=== PATIENT | male | born 1965 | race Caucasian/White ===

== ENCOUNTER 2019-02-14 08:27 | Outpatient (CLI) | payer OTHER ==
[2019-02-14 09:14] LABS: BASOPHILS % (AUTO) 0.8 %; EOSINOPHILS # (AUTO) 0.1 10^3/uL (0.0-0.7); HGB - HEMOGLOBIN 14.8 g/dL (14.0-18.0); LYMPHOCYTES # (AUTO) 0.8 10^3/uL (1.5-3.5); LYMPHOCYTES % (AUTO) 15.5 %; MEAN CORPUSCULAR HEMOGLOBIN 30.1 pg (27.0-31.0); MEAN CORPUSCULAR HGB CONC 33.6 g/dL (32.0-36.0); MEAN CORPUSCULAR VOLUME 89.5 fL (80.0-94.0); MEAN PLATELET VOLUME 8.3 fL (7.4-11.4); MONOCYTES # (AUTO) 0.6 10^3/uL (0.0-1.0); MONOCYTES % (AUTO) 11.8 %; NEUTROPHILS # (AUTO) 3.6 10^3/uL (1.5-6.6); NEUTROPHILS % (AUTO) 69.9 %; PLT - PLATELET COUNT 215 10^3/uL (130-450); RED BLOOD COUNT 4.92 10^6/uL (4.70-6.10); RED CELL DISTRIBUTION WIDTH 13.1 % (12.0-15.0); WHITE BLOOD COUNT 5.2 x10^3/uL (4.8-10.8)
[2019-02-14 09:32] LABS: ALBUMIN 4.6 g/dL (3.2-5.5); ALBUMIN/GLOBULIN RATIO 1.4 (1.0-2.2); ALKALINE PHOSPHATASE 62 IU/L (42-121); ALT ALANINE AMINOTRANSFERASE 21 IU/L (10-60); AST ASPARTATE AMINOTRANSFERASE 25 IU/L (10-42); BUN - BLOOD UREA NITROGEN 21 mg/dL (6-20); CALCIUM 9.3 mg/dL (8.5-10.3); CARBON DIOXIDE - CO2 29 mmol/L (21-32); CHLORIDE 103 mmol/L (101-111); CHOL/HDL RATIO 2.8 (<5.0); CHOLESTEROL 175 mg/dL; CREATININE 1.1 mg/dL (0.6-1.2); GFR - MDRD 69 (>89); GLUCOSE 105 mg/dL (70-100); HDL CHOLESTEROL 63 mg/dL; SODIUM 138 mmol/L (135-145); TOTAL PROTEIN 7.8 g/dL (6.7-8.2)
[2019-02-14 10:07] LABS: LDL CHOLESTEROL,DIRECT 107 mg/dL; LDLD/HDL RATIO 1.7 (<3.6)
== END 2019-02-14 08:28 | disposition home or self-care (01) ==
LOC: LAB 08:27
PROVIDERS: ATTEND Nurse Practitioner Family
DX: Z00.00 Encounter for general adult medical examination without abnormal findings (principal); E55.9 Vitamin D deficiency, unspecified; E78.5 Hyperlipidemia, unspecified
CPT/HCPCS: 36415; 80053; 80061; 82306; 82728; 83721; 85025

== ENCOUNTER 2021-06-22 04:59 | Outpatient (CLI) | payer OTHER | END 2021-06-22 05:00 | disposition critical access hospital (66) | LOC: EMS 04:59 | DX: R29.898 Other symptoms and signs involving the musculoskeletal system (principal) | CPT/HCPCS: A0425; A0429 ==

== ENCOUNTER 2021-06-22 05:05 | Observation (INO) | payer OTHER ==
--- NOTE | 2021-06-22 05:22 | ED Physician Documentation ---
PD HPI FOCAL NEURO - Stated complaint Stated Complaint: L SIDE NUMBNESS - Chief complaint Chief Complaint: Neuro - History obtained from History obtained from: Patient, EMS - History of Present Illness Timing - onset: Enter time (04:20), Today Timing - details: Abrupt onset Severity of deficit: Mild Weakness: Arm, Leg, Left Associated symptoms: No: Headache, Nausea / vomiting, Head injury, Neck pain, Fever Contributing factors: negative: Anticoagulated, Vascular dz, Atrial fibrillation, Prosthetic heart valve Baseline status: positive: A&OX3, ambulatory, indep Similar symptoms before: Has not had sx before Recently seen: Not recently seen - Additional information Additional information: BIBA. patient says he woke up this morning, ate breakfast, and then drove to work. He arrived at work at 4:20 AM this morning and upon getting out of his vehicle, he noted symptoms involving his left arm and leg that he can best describe as feeling like the LUE and LLE were not doing/going what he wanted them to. He denies weakness per se and denies numbness/paresthesias. He says he feels as though his left arm and leg were "light" as if they were drifting from targeted movements and actions. He had gotten into his vehicle approximately 10 minutes earlier and did not have this sensation when he was at home nor when he got into his vehicle. He denies h/o similar symptoms. EMS notes FSBS 134. Patient has not felt symptoms while at rest, but upon transferring himself from EMS stretcher to ED stretcher he says that his symptoms have significantly imp roved. Review of Systems Constitutional: reports: Reviewed and negative Eyes: reports: Reviewed and negative Ears: reports: Reviewed and negative Nose: reports: Reviewed and negative Throat: reports: Reviewed and negative Cardiac: reports: Reviewed and negative Respiratory: reports: Reviewed and negative GI: reports: Reviewed and negative Skin: reports: Reviewed and negative Musculoskeletal: reports: Reviewed and negative Neurologic: denies: Focal weakness, Numbness, Altered mental status, Headache, Head injury PD PAST MEDICAL HISTORY - Past Medical History Past Medical History: Yes Other Past Medical History: HHT - Past Surgical History Past Surgical History: No - Present Medications Home Medications: Ambulatory Orders Medication Instructions Recorded Confirmed No Known Home Medications 06/22/21 06/22/21 - Allergies Allergies/Adverse Reactions: Allergies Allergy/AdvReac Type Severity Reaction Status Date / Time No Known Drug Allergies Allergy Verified 06/22/21 05:08 - Living Situation Living Situation: reports: Alone Living Arrangement: reports: At home PD ED PE NORMAL - Vitals Vital signs reviewed: Yes - General General: Alert and oriented X 3, No acute distress, Well developed/nourished - HEENT HEENT: PERRL, EOMI, Moist mucous membranes - Neck Neck: Supple, no meningeal sign - Cardiac Cardiac: RRR, No murmur, No gallop, No rub - Respiratory Respiratory: No respiratory distress, Clear bilaterally - Abdomen Abdomen: Soft, Non tender - Derm Derm: Normal color, Warm and dry - Extremities Extremities: No edema - Neuro Neuro: Alert and oriented X 3, office coordinator 2-12 intact, No motor deficit, No sensory deficit, Normal speech Eye Opening: Spontaneous Motor: Obeys Commands Verbal: Oriented GCS Score: 15 - Psych Psych: Normal mood, Normal affect NIHSS - Time Time: 05:10 - Level of Consciousness Level of consciousness: (0) Alert, Keenly responsive LOC Questions: (0) Answers both Q's correct LOC Commands: (0) Performs both correctly - Gaze Best Gaze: (0) Normal - Visual Visual: (0) No loss - Facial Palsy Facial Palsy: (0) Normal, symmetrical movement - Motor Arms (both separate) Motor Arm (right): (0) No drift Motor Arm (left): (0) No drift - Motor Legs (both separate) Motor Leg (right): (0) No drift Motor Leg (left): (0) No drift - Limb Ataxia Limb Ataxia: (0) Absent - Sensory Sensory: (0) Normal - Best Language Best Language: (0) No aphasia - Dysarthria Dysarthria: (0) Normal - Extinction and Inattention (formally neg Extinction and inattention: (0) No abnormality - Total Score/Results Total Score/Result: 0 Results - Vitals Vitals: Vital Signs - 24 hr 06/22/21 06/22/21 06/22/21 05:09 05:13 06:07 Temperature 36.2 C L 36.2 C L Heart Rate 92 92 84 Respiratory 16 16 17 Rate Blood Pressure 155/90 H 155/90 H 148/91 H O2 Saturation 98 98 96 06/22/21 06/22/21 06:37 07:26 Temperature Heart Rate 81 77 Respiratory 14 16 Rate Blood Pressure 138/87 H 134/91 H O2 Saturation 99 Oxygen O2 Source Room air - Labs Labs: Laboratory Tests 06/22/21 06/22/21 06/22/21 05:16 05:16 06:09 WBC 9.7 RBC 4.92 Hgb 15.3 Hct 44.5 MCV 90.4 MCH 31.1 H MCHC 34.4 RDW 12.2 Plt Count 257 MPV 10.3 Neut # (Auto) 7.3 H Lymph # (Auto) 1.2 L [place] # (Auto) 1.0 Eos # (Auto) 0.1 Baso # (Auto) 0.1 Absolute Nucleated RBC 0.00 Nucleated RBC % 0.0 PT 11.7 INR 1.1 APTT 31.2 Sodium 137 Potassium 3.7 Chloride 103 Carbon Dioxide 23 Anion Gap 11.0 BUN 16 Creatinine 0.9 Estimated GFR (MDRD) 87 L Glucose 148 H Calcium 9.0 Total Bilirubin 1.2 H AST 24 ALT 23 Alkaline Phosphatase 79 Total Protein 7.9 Albumin 4.5 Globulin 3.4 Albumin/Globulin Ratio 1.3 Lipase 32 - Rads (name of study) CTA head Radiology: Prelim report reviewed, See rad report CTA neck Radiology: Prelim report reviewed, See rad report PD MEDICAL DECISION MAKING - ED course Complexity details: reviewed results, re-evaluated patient, considered differential, d/w patient ED course: patient presents after sudden onset of LUE and LLE symptoms that he says felt like a lack of coordination between actions he intended and what the left arm and leg were doing. He says symptoms have improved en route. His NIHSS score is zero on my evaluation. Telestroke consult obtained, during the course of which the neurologist had patient stand and take a few steps, noting no difficulty in doing so and patient acknowledged that his symptoms had completely resolved. His initial tests, including CTA head/neck, are unremarkable. TIA is still considered and neurologist recommends admission for further testing to include telemetry, echo, and MRI. I discussed with the consult the lack of MRI capability at [facility] until Friday; she says that patient can have MRI in outpatient setting in the upcoming week provided he is observed on telemetry and undergoes echo, with discharge after 24 hours of telemetry provided his symptoms do not recur and no concerning findings on telemetry and echo. ED TRANSITION MANAGER contacted [facility] for consideration of transfer to a facility that has MRI available; they advise that bed availability is scarce and that we can disposition patient at this point. [facility], [facility], and [facility] in [place] are then contacted and there are no beds available at any of these facilities. I then contacted [facility] hospitalist (Dr. Brenner) and patient is accepted to [facility] with plan to undergo 24 hours telemetry and echo as outlined by neurologist as a reasonable option. Dr. Hinds (neurology telestroke consult) also recommends 81mg ASA QD, plavix 75 mg QD (for 3 weeks) ,80mg lipitor QD (6 weeks). - TPA CVA checklist Inclusion crititeria: positive: CT no bleed, Onset know < 4.5 hr. negative: Sig neuro deficit (resolved ) Departure - Departure Disposition: ED Place in Observation Clinical Impression: TIA (transient ischemic attack) Condition: Good Discharge Date/Time: 06/22/21 08:34
[2021-06-22] MEDS ORDERED: IOPAMIDOL-300 50 ML VIAL ONE (05:30)
[2021-06-22 05:35] LABS: BASOPHILS # (AUTO) 0.1 10^3/uL (0.0-0.1); BASOPHILS % (AUTO) 0.5 %; EOSINOPHILS # (AUTO) 0.1 10^3/uL (0.0-0.7); EOSINOPHILS % (AUTO) 1.2 %; HCT - HEMATOCRIT 44.5 % (42.0-52.0); HGB - HEMOGLOBIN 15.3 g/dL (14.0-18.0); LYMPHOCYTES # (AUTO) 1.2 10^3/uL (1.5-3.5); LYMPHOCYTES % (AUTO) 12.1 %; MEAN CORPUSCULAR HEMOGLOBIN 31.1 pg (27.0-31.0); MEAN CORPUSCULAR HGB CONC 34.4 g/dL (32.0-36.0); MEAN CORPUSCULAR VOLUME 90.4 fL (80.0-94.0); MEAN PLATELET VOLUME 10.3 fL (7.4-11.4); MONOCYTES % (AUTO) 10.5 %; NEUTROPHILS # (AUTO) 7.3 10^3/uL (1.5-6.6); NEUTROPHILS % (AUTO) 75.2 %; PLT - PLATELET COUNT 257 10^3/uL (130-450); RED BLOOD COUNT 4.92 10^6/uL (4.70-6.10); RED CELL DISTRIBUTION WIDTH 12.2 % (12.0-15.0); WHITE BLOOD COUNT 9.7 x10^3/uL (4.8-10.8)
[2021-06-22 05:44] LABS: ALBUMIN 4.5 g/dL (3.2-5.5); ALBUMIN/GLOBULIN RATIO 1.3 (1.0-2.2); BILIRUBIN,TOTAL 1.2 mg/dL (0.2-1.0); CREATININE 0.9 mg/dL (0.6-1.2); POTASSIUM 3.7 mmol/L (3.5-5.0); TOTAL PROTEIN 7.9 g/dL (6.7-8.2)
[2021-06-22] MEDS ORDERED: IOPAMIDOL-300 50 ML VIAL IVP ONE (06:08)
[2021-06-22 06:19] LABS: INR 1.1 (0.8-1.2); PT - PROTHROMBIN TIME 11.7 secs (9.9-12.6)
[2021-06-22 06:26] LABS: PARTIAL THROMBOPLASTIN TIME 31.2 secs (24.9-33.3)
[2021-06-22] MEDS ORDERED: ONDANSETRON 4 MG/2 ML VIAL IVP PRN (07:31)
[2021-06-22] MEDS ORDERED: ONDANSETRON ODT 4 MG TABLET TL PRN (07:31)
[2021-06-22] MEDS ORDERED: SODIUM CHLORIDE FLUSH 0.9% 10 ML SYRINGE IVP PRN (07:31)
--- NOTE | 2021-06-22 07:52 | CT Report ---
PROCEDURE: ANGIO HEAD W/WO INDICATIONS: left arm/leg weakness CONTRAST: IV CONTRAST: Isovue 300 ml: 80 PO CONTRAST: *NO PO CONTRAST TECHNIQUE: Precontrast 4.5 mm thick angled axial sections acquired from the foramen magnum to the vertex. Afte r the administration of intravenous contrast, 1 mm thick sections acquired through the [place] of Will is. Postcontrast 4.5 mm thick sections then re-acquired from the foramen magnum to the vertex. 3-di mensional domwuod-rnbfsmunp-jcpbjtepqy (MIP) and/or volume rendering reformats were acquired of the c entral intracranial vasculature. For radiation dose reduction, the following was used: automated ex posure control, adjustment of mA and/or kV according to patient size. COMPARISON: MRI brain/. FINDINGS: Image quality: Excellent. Anterior circulation: Intracranial internal carotid arteries are normal in size and flow. The flow within the paired anterior cerebral arteries is normal and symmetric. The flow within the middle cer ebral arteries is normal and symmetric. The anterior communicating artery is seen. No aneurysms are seen. Posterior circulation: The right vertebral artery terminates in a right posterior inferior cerebellar artery. Left vertebral artery is fully patent. Patient is to go artery dominant. The basilar artery is fully patent. Flow within the posterior cerebral arteries is normal and symmetric. No aneurysms a re seen. Sinuses demonstrate normal postcontrast enhancement. CSF spaces: Ventricles are normal in size and shape. Basal cisterns are patent. No extra-axial flu id collections. Brain: No midline shift. No intracranial bleeds or masses. Lopez-white matter interface appears int act. Skull and face: Calvarium and facial bones appear intact, without suspicious lesions. Sinuses: Visualized sinuses and mastoids are clear. IMPRESSION: 1. No acute intracranial disease process. 2. No large vessel occlusion, vascular stenosis, vascular dissection or aneurysm. Reviewed by: Tiffany Stacy MD, PhD on 06/22/2021 7:51 AM PDT Approved by: Tiffany Stacy MD, PhD on 06/22/2021 7:51 AM PDT Station ID: [id number]
--- NOTE | 2021-06-22 07:55 | CT Report ---
PROCEDURE: ANGIO NECK W INDICATIONS: left arm/leg weakness CONTRAST: IV CONTRAST: Isovue 300 ml: 80 PO CONTRAST: *NO PO CONTRAST TECHNIQUE: After the administration of intravenous contrast, 1.5 mm axial sections acquired from the aortic arch to the [place] of [place]. Coronal 3-D maximum intensity projection (MIP) and/or volume rendering ref ormats were then performed. For radiation dose reduction, the following was used: automated exposur e control, adjustment of mA and/or kV according to patient size. COMPARISON: None. FINDINGS: Image quality: Excellent. Carotid system: The great vessels demonstrate a conventional anatomy as they arise from the aortic a [facility]. The origins of the common carotid arteries appear patent. The common carotid arteries demonstr ate normal calibers and courses. The bifurcation regions appear normal bilaterally. The internal ca rotid arteries demonstrate normal caliber and course. Posterior circulation: The origins of the vertebral arteries appear patent. Minimal atherosclerotic desiccation the origin of the left vertebral artery which does not cause measurable stenosis. The mo re superior portions of the vertebral arteries demonstrate normal course and caliber. They join to f orm a normal appearing basilar artery. Soft tissues: Visualized neck soft tissues demonstrate no suspicious abnormalities. The thyroid is normal in size and there are no incidental findings. Bones: No suspicious bony lesions. No spine Visualized cervical spine appears normally aligned. IMPRESSION: No large vessel occlusion, vascular stenosis, vascular dissection or aneurysm. The estimate of stenosis included in the report of the imaging study was calculated using the NASCET method Reviewed by: Tiffany Stacy MD, PhD on 06/22/2021 7:54 AM PDT Approved by: Tiffany Stacy MD, PhD on 06/22/2021 7:54 AM PDT Station ID: [id number]
[2021-06-22 09:32] LABS: B. PARAPERTUSSIS- RESP PCR PAN NOT DETECTED; B. PERTUSSIS- RESP PCR PANEL NOT DETECTED; C. PNEUMONIAE- RESP PCR PANEL NOT DETECTED; CORONAVIRUS 229E-RESP PCR NOT DETECTED; CORONAVIRUS HKU1-RESP PCR NOT DETECTED; CORONAVIRUS NL63-RESP PCR NOT DETECTED; CORONAVIRUS OC43-RESP PCR NOT DETECTED; HUMAN METAPNEUMOVIRUS NOT DETECTED; INFLUENZA A- RESP PCR PANEL NOT DETECTED; INFLUENZA B - RESP PCR PANEL NOT DETECTED; M. PNEUMONIAE- RESP PCR PANEL NOT DETECTED; PARAINFLUENZA VIRUS 1 NOT DETECTED; PARAINFLUENZA VIRUS 2 NOT DETECTED; PARAINFLUENZA VIRUS 3 NOT DETECTED; PARAINFLUENZA VIRUS 4 NOT DETECTED; RHINOVIRUS/ENTEROVIRUS NOT DETECTED; RSV- RESP PCR PANEL NOT DETECTED; SARS-CoV-2 -RESP PCR PANEL NOT DETECTED
--- NOTE | 2021-06-22 09:46 | PHARMACY PROGRESS NOTE ---
- Best Possible Medication History Admit Date and Time: 06/22/21 0731 Processed by: Nursing Medication History completed: Yes Patient Interview: Completed (MED REC COMPLETED BY NURSING) As the person ultimately responsible for medication therapy, providers are able to order a medication from an existing home medication list in [facility] via the "Reconcile Routine" prior to Confirmation of that medication by network support specialist. Such practice is discouraged except when the physician, in their clinical judgment, deems that a medical need exists for a medication without regard to previous use.
--- NOTE | 2021-06-22 10:56 | HISTORY & PHYSICAL EXAMINATION ---
Chief Complaint - Chief Complaint Chief Complaint: left leg and arm not working right History of Present Illness - Admitted From Admitted From:: ED - History Obtained From History obtained from: patient and ED notes Exam Limitations: none - History of Present Illness HPI Comment/Other: 66 yo male with no medical problems on no Rx medications presented with Left sided clumsiness. 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 Got to work , does recall having both hands on the wheel driving, doesnt think he was leaning/ resting on the left as driving noted his left leg and left arm werent working properly as he walked out of the car to the office. He was able to walk in. (he agrees "clumsy" is a good word for his gait. Denies tingling/paresthesia. Someone else heading in said that doesnt look right to which he agreed. EMT's were called. Symptoms persisted ~ 40 minutes. He did not note wordfinding difficulty or expressive aphasia but he says the loading machine tool setter felt he was slurring a bit. He says they did not note facial asymmetry. Only remote smoking hx in 90's, no diabetes, no HTN , no known significant hypercholesterolemia ( he just swiched PCPs but has data on a disc). Father now 77 yrs had a stroke ~ age mid 50s. He does not recall if dad has HTn or DM. no tobacco. mother of hereditary telangectasias/bleeding. In the ED VS notable for modest hyp ertension (mild 150's/90 HR 80's, RA 99%. CT head no acute , CTA head/neck no signiifcant finding. NIHSS score zero upon eval in ED During my exam patient notes that finger to nose was awkward on left initially ED physician discussed patient w/ Dr Brenner. He was with other patient so I did not get direct signout ; as above NIHSS zero once here. "Telestroke consult obtained, Neurologist had patient stand and take a few steps, noting no difficulty in doing so and patient acknowledged that his symptoms had completely resolved. TIA is still considered and neurologist recommends admission for further testing to include telemetry, echo, and MRI. MRI not available till MOn which ED provider noted to neurology. Neurology noted patient can have MRI in outpatient setting in the upcoming week provided he is observed on telemetry and undergoes echo, with discharge after 24 hours of telemetry provided his symptoms do not recur and no concerning findings on telemetry and echo. " (Also per ED note;ED EXTRA HAND contacted [facility] for consideration of transfer to facility w/ MRI available; they advised bed availability scarce and unable to transfer; [facility], [facility], and [facility] in [place] contacted and no beds available at any of these facilities. ED then contacted [facility] hospitalist (Dr. Brenner) and patient accepted obs [facility] with plan; 24 hours telemetry, and echo as outlined by neurologist as a reasonable option. Dr. Hinds (neurology telestroke consult) also recommends 81mg ASA QD, plavix 75 mg QD (for 3 weeks) ,80mg lipitor QD (6 weeks). History - Past Medical History Cardiovascular: reports: Hypertension, Other MRSA Hx?: No Other Past Medical History: HHT - Family & Social History Family History: Mother: (bleeding telangectasias), Father: Alive and Well (Dad alive, stroke in 50's), Sister: Alive and Well Living arrangement: At home (lives with , has step kids, works for [employer]. 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; he grabbed what he thought was yogurt for his granola this mornign; it was workman, but he ate it anyway) - Substance History Use: Uses substance without health or social issues: Tobacco (remote; quit in ) - POLST POLST Status: Full Code Meds/Allgy - Home Medications Home Medications: Ambulatory Orders Medication Instructions Recorded Confirmed No Known Home Medications 06/22/21 06/22/21 - Allergies Allergies/Adverse Reactions: Allergies Allergy/AdvReac Type Severity Reaction Status Date / Time No Known Drug Allergies Allergy Verified 06/22/21 05:08 Review of Systems - Constitutional Constitutional: denies: Fatigue, Weakness, Poor appetite, Diaphoresis, Night sweats, Weight gain, Weight loss - Eyes Eyes: reports: Corrective lenses (for distance). denies: Field loss, Dipolpia - Cardiovascular Cariovascular: reports: Lightheadedness (only today after sitting down in his office with the HPI symptms). denies: Irregular heart rate, Palpitations, Exertional dyspnea - Respiratory Respiratory: denies: Cough, Orthopnea, SOB at rest, SOB with exertion - Gastrointestinal Gastrointestinal: reports: Abdominal pain. denies: Constipation (just as of a few days ago has some lower abdominal pain, notes it when he coughs as well. he has not noticed a hernia produced w/ valsava. No change in bowel habits. last bm yesterday), Diarrhea, Change in bowel habits, Black stools, Bloody stools, Nausea, Vomiting - Genitourinary Genitourinary: denies: Dysuria, Frequency, Urgency, Flank pain - Musculoskeletal Musculoskeletal: reports: Other (none) - Neurological Neurological: reports: Other (as per HPI) - Psychiatric Psychiatric: denies: Depression - Endocrine Endocrine: denies: Polyuria, Polydypsia, Polyphagia - Hematologic/Lymphatic Hematologic/Lymphatic: denies: Anemia, Bruising, Blood clots Exam - Vital Signs Reviewed Vital Signs: Yes Vital Signs: Vital Signs x48h Temp Pulse Pulse Resp BP BP Pulse Ox 06/22/21 08:07 81 16 152/96 H 98 06/22/21 08:00 36.4 C L 84 16 140/88 H 97 06/22/21 07:26 77 16 134/91 H 06/22/21 06:37 81 14 138/87 H 99 06/22/21 06:07 84 17 148/91 H 96 06/22/21 05:13 36.2 C L 92 16 155/90 H 98 06/22/21 05:09 36.2 C L 92 16 155/90 H 98 - Physical Exam General Appearance: positive: No acute distress, Alert, Other (nontoxic robust appearing middle age man, alert, oriented, appropriate , articulate re: his history telling) Eyes Bilateral: positive: Normal inspection, PERRL, EOMI ENT: positive: Pharynx nml, Other (own teeth, fair dentition) Neck: positive: Nml inspection. negative: Carotid bruit Respiratory: positive: Chest non-tender, No respiratory distress, Breath sounds nml Cardiovascular: positive: Regular rate & rhythm, No murmur Peripheral Pulses: positive: 2+ Abdomen: positive: No organomegaly, Nml bowel sounds, No distention, Tenderness (mild tenderness, some grimace on palpation of very lower abdomen, no rebound, no evident hernia w/ valsava,) Skin: positive: Warm, Dry Extremities: negative: Pedal edema Neurologic/Psychiatric: positive: Oriented x3, Motor nml, Sensation nml, Mood/affect nml, Other (CN2-12 intact, articulate, rapid alternating movements intact (he notes finger to nose was awakward on left initially), 5/5/ = motor strength bilat, no pronator drift) Conclusion/Plan - Problem List (1) TIA (transient ischemic attack) Conclusion/Plan: Possible TIA; the duration of the symptoms is concerning, argue against a muskul oskeletal cause e.g positioning in car ; As per HPI few significant risk factors, modest BP elevation if his baseline does qualify as HTN although he is not on Rx for HTN or if TIA may be partly compensatory. lipid panel pending symptoms have resolved CTA head/neck w/ no large vessel stenosis MRI not available per HPI; needs as outpatient next week tele; NSR so far (6:30 pm confirmed NSR only) Echo preliminary report; Nl LV size and fxn Ef 60-65%. No WMA, normal bubble study. Normal valves RVSP 29mm follow on tele overnight DAPT x 21 days thru 07/06, then ASA 81 daily; first dose plavix today high intensity statin; first dose atorvastatin 80 today did not get ASA in ED; started on floor Addendum; lipid panel Total chol 177 TG 74 HDL 63 LDL 99 (2) Hypertension Conclusion/Plan: 150s/90s Patient reports BP has always been 130's systolic (last seen by PCP ~ 2 mos ago) If presenting symptoms represent TIA; elevated BP may be compensatory -permissive HTN for now - Lab Results Fish Bones: 06/22/21 05:16 06/22/21 05:16 - Diagnostic Imaging Results Diagnostic Imaging Results: positive: Final report reviewed, Critical result Diagnostic Imaging Results Comments: Head CTA No acute intracranial disease process, NO large vessel occlusion , vascular stenosis , vascular dissection or aneurysm detail;
[2021-06-22 11:14] LABS: CHOL/HDL RATIO 2.8 (<5.0); CHOLESTEROL 177 mg/dL; HDL CHOLESTEROL 63 mg/dL; LDL CHOLESTEROL,CALCULATED 99 mg/dL; LDL/HDL RATIO 1.6 (<3.6); TRIGLYCERIDES 74 mg/dL; VLDL CHOLESTEROL 15 mg/dL
[2021-06-22] MEDS: ATORVASTATIN 40 MG TABLET PO SCH ×2 (14:09→21:11)
[2021-06-22] MEDS: CLOPIDOGREL 75 MG TABLET PO SCH (14:09)
[2021-06-22] MEDS: ASPIRIN CHEW 81 MG TABLET PO SCH (14:10)
[2021-06-22] MEDS: SODIUM CHLORIDE FLUSH 0.9% 10 ML SYRINGE IVP SCH ×2 (14:10→21:13)
[2021-06-22] MEDS: ACETAMINOPHEN 325 MG TABLET PO PRN ×2 (16:29→21:12)
[2021-06-22] MEDS ORDERED: diphenhydrAMINE 25 MG CAPSULE PO PRN (21:57)
[2021-06-23] MEDS: SODIUM CHLORIDE FLUSH 0.9% 10 ML SYRINGE IVP SCH ×2 (01:00→08:16)
[2021-06-23] MEDS: ASPIRIN CHEW 81 MG TABLET PO SCH (07:23)
[2021-06-23] MEDS: CLOPIDOGREL 75 MG TABLET PO SCH (08:17)
--- NOTE | 2021-06-23 11:40 | Discharge Plan ---
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 No Smoking: If you smoke, Please STOP! Call for help.
[2021-06-23 12:33] VITALS: BP 142/92
--- NOTE | 2021-06-23 13:33 | DISCHARGE SUMMARY ---
Discharge Summary Admit Date: 06/23/21 Discharge Date: 06/23/21 Discharging Provider: Otf Ruvalcaba MD Primary Care Provider: None Code Status: Attempt Resuscitation Condition at Discharge: Good Discharge Disposition: 01 Home, Self Care - DIAGNOSES Admission Diagnoses: TIA HTN Discharge Diagnoses with Status of Each Condition: TIAimproved Hypertensionimproved - HPI History of Present Illness: 66 yo male with no medical problems on no Rx medications presented with Left sided clumsiness. He is a [place] in[employer] worker; heading to work today early ~ 4am as per usual, no problems dodging deer etc, had eaten breakfast. Got to work , does recall having both hands on the wheel driving, doesnt think he was leaning/ resting on the left as driving noted his left leg and left arm werent working properly as he walked out of the car to the office. He was able to walk in. (he agrees "clumsy" is a good word for his gait. Denies tingling/paresthesia. Someone else heading in said that doesnt look right to which he agreed. EMT's were called. Symptoms persisted ~ 40 minutes. He did not note wordfinding difficulty or expressive aphasia but he says the timing inspector felt he was slurring a bit. He says they did not note facial asymmetry. Only remote smoking hx in 90's, no diabetes, no HTN , no known significant hypercholesterolemia ( he just swiched PCPs but has data on a disc). Father now 77 yrs had a stroke ~ age mid 50s. He does not recall if dad has HTn or DM. no tobacco. mother of he reditary telangectasias/bleeding. In the ED VS notable for modest hypertension (mild 150's/90 HR 80's, RA 99%. CT head no acute , CTA head/neck no signiifcant finding. NIHSS score zero upon eval in ED During my exam patient notes that finger to nose was awkward on left initially ED physician discussed patient w/ Dr Brenner. He was with other patient so I did not get direct signout ; as above NIHSS zero once here. "Telestroke consult obtained, Neurologist had patient stand and take a few steps, noting no difficulty in doing so and patient acknowledged that his symptoms had completely resolved. TIA is still considered and neurologist recommends admission for further testing to include telemetry, echo, and MRI. MRI not available till MOn which ED provider noted to neurology. Neurology noted patient can have MRI in outpatient setting in the upcoming week provided he is observed on telemetry and undergoes echo, with discharge after 24 hours of telemetry provided his symptoms do not recur and no concerning findings on telemetry and echo. " (Also per ED note;ED SECURITY DELIVERY SPECIALIST contacted [facility] for consideration of transfer to facility w/ MRI available; they advised bed availability scarce and unable to transfer; [facility], [facility], and [facility] in [place] contacted and no beds available at any of these facilities. ED then contacted [facility] hospitalist (Dr. Brenner) and patient accepted obs [facility] with plan; 24 hours telemetry, and echo as outlined by neurologist as a reasonable option. Dr. Hinds (neurology telestroke consult) also recommends 81mg ASA QD, plavix 75 mg QD (for 3 weeks) ,80mg lipitor QD (6 weeks). - HOSPITAL COURSE Hospital Course: After admission the patient had no further symptoms of left-sided numbness, wea kness, or other neurological deficits. He was essentially back at his baseline and kept overnight for further observation. His blood pressure was monitored and was mildly variable but was generally less than 140 systolic and less than 80 diastolic. This is without antihypertensive management as the approach was Permissive hypertensionDuring his hospitalization. His stroke work-up consisted of CT angiogram which showed no acute abnormalities, and Echocardiogram which was generally unremarkable. MRI was not available during his hospitalization and it was recommended that he have this done as an outpatient. He was started on Plavix and aspirin as well as high-dose statin. He was recommended to continue Plavix for 21 days followed by aspirin alone, and to continue the statin for the foreseeable future for now with further decision making based on PCP recommendations in future lipid panel results. He was advised to get a blood pressure monitoring cuff and to monitor his blood pressu res and record an ambulatory blood pressure log to determine whether hypertension medication would be indicated. Return to ER precautions were reviewed, including driving restrictions, and the patient was deemed to be medically stable for discharge home. - ALLERGIES Allergies/Adverse Reactions: Allergies Allergy/AdvReac Type Severity Reaction Status Date / Time No Known Drug Allergies Allergy Verified 06/22/21 05:08 - MEDICATIONS Home Medications: Ambulatory Orders Medication Instructions Recorded Confirmed Aspirin Chewable [[facility] 81 mg PO DAILYWM #30 tablet 06/23/21 Aspirin] Atorvastatin [Lipitor] 80 mg PO QPM 30 Days #60 tablet 06/23/21 Blood Pressure Test Kit-Large 1 each MC BID #1 kit 06/23/21 [Blood Pressure Monitor] Cholecalciferol (Vitamin D3) 50,000 unit PO DAILY #12 06/23/21 [Vitamin D] Clopidogrel [Plavix] 75 mg PO DAILY 21 Days #21 tablet 06/23/21 - PHYSICAL EXAM AT DISCHARGE General Appearance: positive: No acute distress Eyes Bilateral: positive: Normal inspection ENT: positive: ENT inspection nml Neck: positive: Nml inspection Respiratory: positive: No respiratory distress Cardiovascular: positive: Regular rate & rhythm Skin: positive: Color nml Neurologic/Psychiatric: positive: Oriented x3, CN's nml (2-12) - LABS Result Diagrams: 06/22/21 05:16 06/22/21 05:16 - DIAGNOSTIC IMAGING Diagnostic Imaging Results: Final report reviewed - FOLLOW UP Follow Up: Follow-up with PCP - TIME SPENT Time Spent in Discharge (Minutes): 46
== END 2021-06-23 13:02 | disposition home or self-care (01) ==
LOC: EDUNIT# → ED 05:05 → MS2 07:31
PROVIDERS: ADMIT Nurse Practitioner; ATTEND Family Medicine Sports Medicine
DX: G45.9 Transient cerebral ischemic attack, unspecified (principal); I10 Essential (primary) hypertension; Z20.822 Contact with and (suspected) exposure to COVID-19; Z87.891 Personal history of nicotine dependence
CPT/HCPCS: 0202U; 36415; 70496; 70498; 80053; 80061; 83690; 85025; 85610; 85730; 93306; 99284; 99285; A9270; G0378; 83721

== ENCOUNTER 2022-08-19 11:19 | Emergency (ER) | payer OTHER ==
[2022-08-19 11:51] LABS: BASOPHILS % (AUTO) 0.6 %; EOSINOPHILS # (AUTO) 0.1 10^3/uL (0.0-0.7); EOSINOPHILS % (AUTO) 1.6 %; HCT - HEMATOCRIT 44.1 % (42.0-52.0); HGB - HEMOGLOBIN 14.8 g/dL (14.0-18.0); LYMPHOCYTES % (AUTO) 13.8 %; MEAN CORPUSCULAR HEMOGLOBIN 30.4 pg (27.0-31.0); MEAN CORPUSCULAR HGB CONC 33.6 g/dL (32.0-36.0); MEAN CORPUSCULAR VOLUME 90.6 fL (80.0-94.0); MEAN PLATELET VOLUME 9.9 fL (7.4-11.4); MONOCYTES # (AUTO) 0.7 10^3/uL (0.0-1.0); MONOCYTES % (AUTO) 10.4 %; NEUTROPHILS # (AUTO) 5.2 10^3/uL (1.5-6.6); NEUTROPHILS % (AUTO) 73.2 %; PLT - PLATELET COUNT 251 10^3/uL (130-450); RED BLOOD COUNT 4.87 10^6/uL (4.70-6.10); RED CELL DISTRIBUTION WIDTH 12.5 % (12.0-15.0)
[2022-08-19 12:03] LABS: ALBUMIN 4.8 g/dL (3.2-5.5); ALBUMIN/GLOBULIN RATIO 1.6 (1.0-2.2); BILIRUBIN,TOTAL 0.6 mg/dL (0.2-1.0); CALCIUM 9.7 mg/dL (8.5-10.3); CREATININE 1.1 mg/dL (0.6-1.2); POTASSIUM 4.4 mmol/L (3.5-5.0); TOTAL PROTEIN 7.8 g/dL (6.7-8.2)
--- NOTE | 2022-08-19 14:47 | ED Physician Documentation ---
PD HPI ABD PAIN - Stated complaint Stated Complaint: MALE - Chief complaint Chief Complaint: Abd Pain - History obtained from History obtained from: Patient - History of Present Illness Timing - onset: How many weeks ago (The patient has had 1 to 2 weeks of intermittent right lower inguinal pain and cramps associated with a feeling of fullness in the area. He went to his primary care who is ordering an outpatient CT. Today the patient had a significant severe increase in the pain with a lump feeling x 1 hr.) Timing - duration: Hours (has had feeling of fullness/swelling right inguinal area intermittently for weeks. Today had onset of marked cramping pain in area and lower abd, with nausea but no vomiting. Improved enroute.) Timing - details: Gradual onset, Now resolved, Waxing and waning. No: Still present Quality: Cramping, Aching, Pain Location: RLQ, Other (right inguinal area) Radiation: No: Chest, Lower back, Right flank Worsened by: Moving, Palpation Associated symptoms: Nausea. No: Fever, Vomiting, Diarrhea, Constipation, Melena, Dysuria Similar symptoms before: Has not had sx before Review of Systems Constitutional: denies: Fever, Chills Nose: denies: Rhinorrhea / runny nose, Congestion Throat: denies: Sore throat Cardiac: denies: Chest pain / pressure, Palpitations Respiratory: denies: Cough GI: reports: Abdominal Pain, Abdominal Swelling (locally right inguinal area intermittently, without tenderness but has some cramping with it over couple of weeks, until this AM with severe pain episode.). denies: Vomiting, Constipation, Diarrhea, Bloody / black stool : denies: Dysuria, Frequency PD PAST MEDICAL HISTORY - Past Medical History Cardiovascular: Hypertension, Other Neuro: CVA (6 yrs ago [facility]) - Past Surgical History Past Surgical History: No - Present Medications Home Medications: Ambulatory Orders Medication Instructions Recorded Confirmed Aspirin Chewable [[facility] 81 mg PO DAILYWM #30 tablet 06/23/21 Aspirin] Atorvastatin [Lipitor] 80 mg PO QPM 30 Days #60 tablet 06/23/21 Blood Pressure Test Kit-Large 1 each MC BID #1 kit 06/23/21 [Blood Pressure Monitor] Cholecalciferol (Vitamin D3) 50,000 unit PO DAILY #12 06/23/21 [Vitamin D] Clopidogrel [Plavix] 75 mg PO DAILY 21 Days #21 tablet 06/23/21 - Allergies Allergies/Adverse Reactions: Allergies Allergy/AdvReac Type Severity Reaction Status Date / Time No Known Drug Allergies Allergy Verified 06/22/21 05:08 - Social History Does the pt smoke?: No Smoking Status: Former smoker Does the pt drink ETOH?: Yes Does the pt have substance abuse?: No - Immunizations Immunizations are current?: Yes - POLST POLST Status: Full Code PD ED PE NORMAL - Vitals Vital signs reviewed: Yes - General General: Alert and oriented X 3, No acute distress, Well developed/nourished - Neck Neck: Supple, no meningeal sign, No adenopathy - Cardiac Cardiac: RRR, No murmur - Respiratory Respiratory: Clear bilaterally - Abdomen Abdomen: Normal bowel sounds, Soft, Non distended, No organomegaly, Other (some tender right inguinal area. No hernia while lying down. Tightening abdomen led to some protrusion of soft tissue inguinal c/w hernia. More noted to right but some on left. No scrotal tenderness. Mid to upper abd not tender. ) - Male Male : Other (no scrotal mass nor tenderness. Penis appears normal. ) - Rectal Rectal: Deferred - Back Back: No CVA TTP - Derm Derm: Normal color, Warm and dry - Extremities Extremities: Normal ROM s pain, No edema, No calf tenderness / cord - Neuro Neuro: Alert and oriented X 3, No motor deficit, Normal speech Results - Vitals Vitals: Oxygen O2 Source Room air - Labs Labs: Laboratory Tests 08/19/22 08/19/22 08/19/22 11:44 11:44 12:25 WBC 7.0 RBC 4.87 Hgb 14.8 Hct 44.1 MCV 90.6 MCH 30.4 MCHC 33.6 RDW 12.5 Plt Count 251 MPV 9.9 Neut # (Auto) 5.2 Lymph # (Auto) 1.0 L [place] # (Auto) 0.7 Eos # (Auto) 0.1 Baso # (Auto) 0.0 Absolute Nucleated RBC 0.00 Nucleated RBC % 0.0 Sodium 139 Potassium 4.4 Chloride 105 Carbon Dioxide 25 Anion Gap 9.0 BUN 22 H Creatinine 1.1 Estimated GFR (MDRD) 69 L Glucose 93 Calcium 9.7 Total Bilirubin 0.6 AST 26 ALT 26 Alkaline Phosphatase 66 Total Protein 7.8 Albumin 4.8 Globulin 3.0 Albumin/Globulin Ratio 1.6 Lipase 35 Urine Color YELLOW Urine Clarity CLEAR Urine pH 6.0 Ur Specific [place] 1.025 Urine Protein NEGATIVE Urine Glucose (UA) NEGATIVE Urine Ketones NEGATIVE Urine Occult Blood NEGATIVE Urine Nitrite NEGATIVE Urine Bilirubin NEGATIVE Urine Urobilinogen 0.2 (NORMAL) Ur Leukocyte Esterase NEGATIVE Ur Microscopic Review NOT INDICATED Urine Culture Comments NOT INDICATED - Rads (name of study) abd/pelvic CT Radiology: Prelim report reviewed (Fat-containing only bilateral inguinal hernias. Diverticula without diverticulitis. Appendix not visualized (status post appendectomy). No other acute abnormality.), See rad report PD MEDICAL DECISION MAKING - ED course Complexity details: re-evaluated patient (exam and history c/w inguinal hernia with brief incarceration eipsode this morning. to follow up with surgery re: likely repair. ), considered differential (He does have inguinal hernia on exam particularly on the right that increases with abdominal tightening. The episode of symptoms sounds likely that he had a temporary incarceration and obstruction that resolved. CT scan and blood test did not show other acute process.), d/w patient Departure - Departure Disposition: 01 Home, Self Care Clinical Impression: Incarcerated inguinal hernia Inguinal hernia Qualifiers: Obstruction and gangrene presence: without obstruction or gangrene Laterality: bilateral Recurrence: not specified as recurrent Qualified Code(s): K40.20 - Bilateral inguinal hernia, without obstruction or gangrene, not specified as recurrent Condition: Stable Record reviewed to determine appropriate education?: Yes Instructions: ED Hernia Inguinal Follow-Up: SHARON ALBRIGHT DO [Primary Care Provider] - [facility] [Provider Group] Comments: Your blood test, urine test, CT scan did not show any obvious acute abnormality to account for your pain at this time. Incidental finding is some cysts in your kidney measuring 2.2 cm. These are relatively common and benign. You have some diverticula but no diverticulitis. No kidney stones. There is some visible inguinal hernias with fat tissue only at this time. However your description of the symptoms sound likely that you had a temporary incarceration or trapping of the hernia in the inguinal area causing some local inflammation as well as probably a tethering effect on the intestine (partial blockage). If that happens again, lay down and apply some gentle pressure to the groin area and see if the hernia lump goes back in and symptoms improved. If not then return to the ER. Otherwise there will be some In-N-Out movement of the hernia and some local swelling as long as its not hurting or tender. Otherwise follow-up with general surgery regarding hernia repair so this does not happen again. Discharge Date/Time: 08/19/22 16:39
[2022-08-19 14:49] LABS: BILIRUBIN,URINE NEGATIVE (NEGATIVE); GLUCOSE, URINE (UA) NEGATIVE (NEGATIVE); KETONES,URINE (UA) NEGATIVE (NEGATIVE); LEUKOCYTE ESTERASE, URINE NEGATIVE (NEGATIVE); NITRITE,URINE NEGATIVE (NEGATIVE); OCCULT BLOOD,URINE NEGATIVE (NEGATIVE); PROTEIN,URINE NEGATIVE (NEGATIVE); UROBILINOGEN,URINE 0.2 (NORMAL) E.U./dL (NORMAL)
[2022-08-19 14:54] LABS: CLARITY,URINE CLEAR (CLEAR)
[2022-08-19] MEDS ORDERED: SODIUM CHLORIDE 0.9% 1,000 ML IV STA (14:58)
[2022-08-19] MEDS ORDERED: KETOROLAC 15 MG/ML VIAL IVP STA (14:58)
[2022-08-19] MEDS ORDERED: iohexoL-300 100 ML VIAL ONE (15:09)
--- NOTE | 2022-08-19 15:54 | CT Report ---
PROCEDURE: ABDOMEN/PELVIS W INDICATIONS: RLQ pain, worse today for few hours; ing hernia CONTRAST: 100ml Omnipaque 300 TECHNIQUE: After the administration of IV contrast, 5 mm thick sections acquired from the diaphragms to the symp hysis. 5 mm thick coronal and sagittal reformats were acquired. For radiation dose reduction, the f ollowing was used: automated exposure control, adjustment of mA and/or kV according to patient size. COMPARISON: None. FINDINGS: Image quality: Excellent. ABDOMEN: Lung bases: Mild dependent atelectasis are seen in posterior aspect of bilateral lung bases. Heart si ze is normal. Solid organs: Liver and spleen are normal in size and enhancement. Gallbladder is within normal carrasco its. Biliary system is non dilated. Pancreas enhances normally. No adrenal nodules. Kidneys demon strate normal size and enhancement, without hydronephrosis. Bilateral renal cysts are seen measures up to 2.2 x 2.2 cm in size in upper to midpole right kidney and up to 2.4 x 2.1 cm in size in mid krunal e of left kidney. Peritoneum and bowel: Bowel loops demonstrate normal wall thickness and caliber. Appendix is not def initively seen. No bowel wall thickening or mesenteric fat stranding is seen in right lower quadrant abdomen. A few scattered sigmoid diverticuli are seen without colonic wall thickening or mesenteric f at stranding. No abscess collection. No free fluid or air. Nodes and vessels: No retroperitoneal or mesenteric adenopathy by size criteria. Aorta and inferior vena cava are normal in size. Miscellaneous: No ventral hernias. PELVIS: Genitourinary: Bladder wall thickness is normal. Miscellaneous: Bilateral inguinal hernia is seen containing fat only. No inguinal lymphadenopathy. Bones: No suspicious bony lesions. No vertebral body compression fractures. Degenerative disc dise ase throughout lower thoracic and lumbar spine is seen. IMPRESSION: 1. No bowel obstruction or abnormal bowel wall thickening. No evidence of acute appendicitis. Sigmoid diverticulosis without evidence of acute diverticulitis. No abscess collection. No free fluid or sriram e air. 2. Bilateral inguinal hernia containing fat only. No inguinal lymphadenopathy. 3. Bilateral renal cysts. No renal stones or hydronephrosis. Reviewed by: Sohail Bourgeois MD on 08/19/2022 3:53 PM PDT Approved by: Sohail Bourgeois MD on 08/19/2022 3:53 PM PDT Station ID: [id number]
[2022-08-19 16:39] VITALS: BP 147/92
[2022-08-19] MEDS ORDERED: iohexoL-300 100 ML VIAL IVP ONE (18:52)
== END 2022-08-19 16:39 | disposition home or self-care (01) ==
LOC: ED 11:19
DX: K40.00 Bilateral inguinal hernia, with obstruction, without gangrene, not specified as recurrent (principal); K57.30 Diverticulosis of large intestine without perforation or abscess without bleeding; I10 Essential (primary) hypertension; Z86.73 Personal history of transient ischemic attack (TIA), and cerebral infarction without residual deficits; Z79.82 Long term (current) use of aspirin; Z87.891 Personal history of nicotine dependence
CPT/HCPCS: 36415; 74177; 80053; 81003; 83690; 85025; 96374; 99284; Q9967; 81001; 87086